=== PATIENT | female | born 1965 | race African-American/Black ===

== ENCOUNTER 2017-09-18 15:28 | Inpatient (IN) | payer BC ==
--- NOTE | 2017-09-18 16:07 | PN ---
S Progress Note Note: Psychiatric nurse practitioner note: Call received by nurse requesting patient's medication. Pt. admitted to rehab from [facility]. Chart reviewed. Seroquel 50mg qhs ordered.
[2017-09-18] MEDS ORDERED: P-EPHED 60MG/TRIPROLIDI 2.5MG TABLET PO PRN (19:26)
[2017-09-18] MEDS ORDERED: MAG HYDROX/AL HYDROX/SIMETH 30 ML UNIT-DOSE CUP PO PRN (19:26)
[2017-09-18] MEDS ORDERED: MAGNESIUM HYDROX 2400MG/30ML ORAL SUSPENSION 30 ML CUP PO PRN (19:26)
[2017-09-18] MEDS ORDERED: ACETAMINOPHEN 325 MG TABLET (FP) PO PRN (19:26)
[2017-09-18] MEDS ORDERED: MENTHOL/PHENOL 1 EACH UD MM PRN (19:26)
[2017-09-18] MEDS ORDERED: MAGNESIUM CITRATE 300 ML BOTTLE PO PRN (19:26)
[2017-09-18] MEDS ORDERED: IBUPROFEN 400 MG TABLET (FP) PO PRN (19:26)
[2017-09-18] MEDS ORDERED: guaiFENesin/D-METHORPHAN HB 10 ML UNIT-DOSE CUPS PO PRN (19:26)
--- NOTE | 2017-09-18 19:28 | HP ---
FAROOQ HERNANDEZ Rehab Assess/Revision - Admission History Admitted to Rehab from: [facility] [place] Date of Admission to Rehab: 09/18/17 - Vital signs Vital Signs: Vital Signs Period Temp Pulse Resp BP Sys/Stevens Pulse Ox Last 24 Hr 98.7 F 97 16 122/85 - Findings Detox History & Physical reviewed: Yes Concur with findings: Yes Inpatient Rehab Admission - Initial Determination Are CD services needed?: Yes Free of communicable disease: Yes Not in need of hospitalization: Yes - Rehab Admission Criteria Previous failed treatment: Yes Poor recovery environment: Yes Comorbidities: Yes Lacks judgement: Yes Patient is meeting Inpatient Rehab admission criteria:: Yes
--- NOTE | 2017-09-18 20:58 | PN ---
[facility] Progress Note Note: Psychiatric nurse practitioner front desk receptionist note: Call received by RN requesting patient's medication. Pt. requesting seroquel 100mg + Celexa 20mg. Pt reported taking seroquel 300mg when assessed by curriculum writer in detox. Pt. able to tolerate seroquel 50mg. Will increase seroquel to 100mg. Celexa to be on hold until patient speaks to unit psychiatrist tomorrow morning.
[2017-09-18] MEDS: THIAMINE HCL 100 MG TABLET (FP) PO SCH (21:34)
[2017-09-18] MEDS: LOPERAMIDE HCL 2 MG CAPSULE PO PRN (21:34)
[2017-09-18] MEDS: QUEtiapine FUMARATE 50 MG TABLET PO SCH (21:34)
[2017-09-18] MEDS ORDERED: QUEtiapine FUMARATE 50 MG TABLET PO SCH (22:00)
[2017-09-19] MEDS: NICOTINE 14 MG/24 HOURS TOPICAL PATCH TD SCH (10:11)
[2017-09-19] MEDS: PRENATAL VITAMINS W/ FOLIC ACID TABLET (FP) PO SCH (10:11)
[2017-09-19] MEDS: LOPERAMIDE HCL 2 MG CAPSULE PO PRN ×2 (10:12→18:15)
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
[2017-09-19] MEDS: GABAPENTIN 100 MG CAPSULE (FP) PO SCH ×2 (15:35→21:06)
[2017-09-19] MEDS: THIAMINE HCL 100 MG TABLET (FP) PO SCH (21:07)
[2017-09-19] MEDS: QUEtiapine FUMARATE 50 MG TABLET PO SCH (21:07)
[2017-09-20] MEDS: GABAPENTIN 100 MG CAPSULE (FP) PO SCH ×3 (06:45→21:20)
[2017-09-20] MEDS: PRENATAL VITAMINS W/ FOLIC ACID TABLET (FP) PO SCH (10:06)
[2017-09-20] MEDS: NICOTINE 14 MG/24 HOURS TOPICAL PATCH TD SCH (10:06)
[2017-09-20] MEDS ORDERED: DIPHENOXYLATE 2.5/ATROPINE.025 1 COMBO TABLET PO ONE (13:55)
--- NOTE | 2017-09-20 13:56 | PN ---
S Progress Note Note: Vital Signs Temperature 99.1 F 09/20/17 07:23 Pulse Rate 91 H 09/20/17 07:23 Respiratory Rate 18 09/20/17 07:23 Blood Pressure 106/79 09/20/17 07:23 O2 Sat by Pulse Oximetry (%) c/o of diarrhea unrelieved with immodium one time dose of lomitil PO fluids as tolerated continue to monitor
[2017-09-20] MEDS: THIAMINE HCL 100 MG TABLET (FP) PO SCH (21:19)
[2017-09-20] MEDS: QUEtiapine FUMARATE 50 MG TABLET PO SCH (21:20)
[2017-09-21] MEDS: GABAPENTIN 100 MG CAPSULE (FP) PO SCH ×3 (06:32→21:13)
[2017-09-21] MEDS: LOPERAMIDE HCL 2 MG CAPSULE PO PRN ×2 (06:33→13:54)
[2017-09-21] MEDS: NICOTINE 14 MG/24 HOURS TOPICAL PATCH TD SCH (10:28)
[2017-09-21] MEDS: PRENATAL VITAMINS W/ FOLIC ACID TABLET (FP) PO SCH (10:28)
[2017-09-21] MEDS ORDERED: COLLOIDAL OATMEAL 1 BAR EACH TP PRN (11:35)
[2017-09-21] MEDS: QUEtiapine FUMARATE 50 MG TABLET PO SCH (21:13)
[2017-09-21] MEDS: THIAMINE HCL 100 MG TABLET (FP) PO SCH (21:13)
[2017-09-21] MEDS: MINERAL OIL/PETROLAT/WATER TOPICAL CREAM 113 GM JAR TP SCH (21:13)
[2017-09-22] MEDS: GABAPENTIN 100 MG CAPSULE (FP) PO SCH ×3 (06:53→21:30)
[2017-09-22] MEDS: PRENATAL VITAMINS W/ FOLIC ACID TABLET (FP) PO SCH (10:33)
[2017-09-22] MEDS: NICOTINE 14 MG/24 HOURS TOPICAL PATCH TD SCH (10:33)
[2017-09-22] MEDS: MINERAL OIL/PETROLAT/WATER TOPICAL CREAM 113 GM JAR TP SCH ×2 (10:34→21:31)
[2017-09-22] MEDS: LOPERAMIDE HCL 2 MG CAPSULE PO PRN (13:50)
[2017-09-22] MEDS: THIAMINE HCL 100 MG TABLET (FP) PO SCH (21:30)
[2017-09-22] MEDS: QUEtiapine FUMARATE 50 MG TABLET PO SCH (21:30)
[2017-09-23] MEDS: GABAPENTIN 100 MG CAPSULE (FP) PO SCH ×3 (06:27→21:18)
[2017-09-23] MEDS ORDERED: PT OWN MED DRAWER 7, Y5N ONE ×2 (08:52→19:53)
[2017-09-23] MEDS: MINERAL OIL/PETROLAT/WATER TOPICAL CREAM 113 GM JAR TP SCH ×2 (10:12→21:53)
[2017-09-23] MEDS: NICOTINE 14 MG/24 HOURS TOPICAL PATCH TD SCH (10:12)
[2017-09-23] MEDS: PRENATAL VITAMINS W/ FOLIC ACID TABLET (FP) PO SCH (10:12)
[2017-09-23] MEDS: QUEtiapine FUMARATE 50 MG TABLET PO SCH (21:17)
[2017-09-23] MEDS: THIAMINE HCL 100 MG TABLET (FP) PO SCH (21:18)
[2017-09-24] MEDS: GABAPENTIN 100 MG CAPSULE (FP) PO SCH ×3 (06:47→21:49)
[2017-09-24] MEDS ORDERED: PT OWN MED DRAWER 7, Y5N ONE (09:57)
[2017-09-24] MEDS: NICOTINE 14 MG/24 HOURS TOPICAL PATCH TD SCH (10:31)
[2017-09-24] MEDS: PRENATAL VITAMINS W/ FOLIC ACID TABLET (FP) PO SCH (10:31)
[2017-09-24] MEDS: NICOTINE POLACRILEX 2 MG GUM BUC PRN (10:32)
[2017-09-24] MEDS: MINERAL OIL/PETROLAT/WATER TOPICAL CREAM 113 GM JAR TP SCH ×2 (10:52→22:30)
[2017-09-24] MEDS: QUEtiapine FUMARATE 50 MG TABLET PO SCH (21:49)
[2017-09-24] MEDS: THIAMINE HCL 100 MG TABLET (FP) PO SCH (21:49)
[2017-09-24] MEDS: MELATONIN 5 MG TABLETS PO PRN (21:51)
[2017-09-24] MEDS: hydrOXYzine PAMOATE 50 MG CAPSULE (FP) PO PRN (21:51)
[2017-09-25] MEDS: GABAPENTIN 100 MG CAPSULE (FP) PO SCH ×3 (06:32→21:16)
[2017-09-25] MEDS: PRENATAL VITAMINS W/ FOLIC ACID TABLET (FP) PO SCH (10:35)
[2017-09-25] MEDS: MINERAL OIL/PETROLAT/WATER TOPICAL CREAM 113 GM JAR TP SCH ×2 (10:35→21:19)
[2017-09-25] MEDS: NICOTINE 14 MG/24 HOURS TOPICAL PATCH TD SCH (10:35)
[2017-09-25] MEDS: NICOTINE POLACRILEX 2 MG GUM BUC PRN ×2 (10:36→19:24)
[2017-09-25] MEDS ORDERED: PT OWN MED DRAWER 7, Y5N ONE (13:56)
[2017-09-25] MEDS: THIAMINE HCL 100 MG TABLET (FP) PO SCH (21:16)
[2017-09-25] MEDS: QUEtiapine FUMARATE 50 MG TABLET PO SCH (21:16)
[2017-09-25] MEDS: MELATONIN 5 MG TABLETS PO PRN (21:17)
[2017-09-25] MEDS: hydrOXYzine PAMOATE 50 MG CAPSULE (FP) PO PRN (21:17)
[2017-09-26] MEDS: GABAPENTIN 100 MG CAPSULE (FP) PO SCH ×3 (06:52→21:05)
[2017-09-26] MEDS: PRENATAL VITAMINS W/ FOLIC ACID TABLET (FP) PO SCH (10:36)
[2017-09-26] MEDS: MINERAL OIL/PETROLAT/WATER TOPICAL CREAM 113 GM JAR TP SCH ×2 (10:36→21:05)
[2017-09-26] MEDS: NICOTINE 14 MG/24 HOURS TOPICAL PATCH TD SCH (10:36)
[2017-09-26] MEDS: NICOTINE POLACRILEX 2 MG GUM BUC PRN (10:38)
[2017-09-26] MEDS ORDERED: PT OWN MED DRAWER 7, Y5N ONE (10:57)
--- NOTE | 2017-09-26 11:52 | PN ---
S Progress Note Note: patient slipped on the hallway,no head injury,stated hit left elbow, no complaint at this time no obvious injury movement left elbow no limitation,no pain bp 124/78,p81,r18,t98.2 treatment initiate fall protocol2 fall precaution observation
[2017-09-26] MEDS: THIAMINE HCL 100 MG TABLET (FP) PO SCH (21:05)
[2017-09-26] MEDS: QUEtiapine FUMARATE 50 MG TABLET PO SCH (21:05)
[2017-09-27] MEDS: GABAPENTIN 100 MG CAPSULE (FP) PO SCH ×3 (06:14→21:48)
[2017-09-27] MEDS: NICOTINE 14 MG/24 HOURS TOPICAL PATCH TD SCH (10:36)
[2017-09-27] MEDS: PRENATAL VITAMINS W/ FOLIC ACID TABLET (FP) PO SCH (10:36)
[2017-09-27] MEDS: MINERAL OIL/PETROLAT/WATER TOPICAL CREAM 113 GM JAR TP SCH ×2 (10:37→21:50)
[2017-09-27] MEDS ORDERED: PT OWN MED DRAWER 7, Y5N ONE (10:58)
[2017-09-27] MEDS: THIAMINE HCL 100 MG TABLET (FP) PO SCH (21:48)
[2017-09-27] MEDS: QUEtiapine FUMARATE 50 MG TABLET PO SCH (21:48)
[2017-09-28] MEDS: GABAPENTIN 100 MG CAPSULE (FP) PO SCH ×3 (06:22→21:10)
[2017-09-28] MEDS: MINERAL OIL/PETROLAT/WATER TOPICAL CREAM 113 GM JAR TP SCH ×2 (10:00→21:11)
[2017-09-28] MEDS: PRENATAL VITAMINS W/ FOLIC ACID TABLET (FP) PO SCH (10:00)
[2017-09-28] MEDS: NICOTINE 14 MG/24 HOURS TOPICAL PATCH TD SCH (10:00)
[2017-09-28] MEDS: THIAMINE HCL 100 MG TABLET (FP) PO SCH (21:10)
[2017-09-28] MEDS: QUEtiapine FUMARATE 50 MG TABLET PO SCH (21:10)
[2017-09-29] MEDS: GABAPENTIN 100 MG CAPSULE (FP) PO SCH ×3 (06:40→21:12)
[2017-09-29] MEDS ORDERED: PT OWN MED DRAWER 7, Y5N ONE (08:32)
[2017-09-29] MEDS: MINERAL OIL/PETROLAT/WATER TOPICAL CREAM 113 GM JAR TP SCH ×2 (09:54→21:12)
[2017-09-29] MEDS: NICOTINE 14 MG/24 HOURS TOPICAL PATCH TD SCH (09:54)
[2017-09-29] MEDS: PRENATAL VITAMINS W/ FOLIC ACID TABLET (FP) PO SCH (09:54)
[2017-09-29] MEDS: MELATONIN 5 MG TABLETS PO PRN (21:11)
[2017-09-29] MEDS: QUEtiapine FUMARATE 50 MG TABLET PO SCH (21:11)
[2017-09-29] MEDS: hydrOXYzine PAMOATE 50 MG CAPSULE (FP) PO PRN (21:11)
[2017-09-29] MEDS: THIAMINE HCL 100 MG TABLET (FP) PO SCH (21:12)
[2017-09-30] MEDS: GABAPENTIN 100 MG CAPSULE (FP) PO SCH ×3 (06:35→21:19)
[2017-09-30] MEDS ORDERED: PT OWN MED DRAWER 7, Y5N ONE (08:18)
[2017-09-30] MEDS: PRENATAL VITAMINS W/ FOLIC ACID TABLET (FP) PO SCH (10:02)
[2017-09-30] MEDS: NICOTINE POLACRILEX 2 MG GUM BUC PRN (10:03)
[2017-09-30] MEDS: NICOTINE 14 MG/24 HOURS TOPICAL PATCH TD SCH (10:03)
[2017-09-30] MEDS: MINERAL OIL/PETROLAT/WATER TOPICAL CREAM 113 GM JAR TP SCH ×2 (10:03→21:20)
[2017-09-30] MEDS: MELATONIN 5 MG TABLETS PO PRN (21:19)
[2017-09-30] MEDS: THIAMINE HCL 100 MG TABLET (FP) PO SCH (21:19)
[2017-09-30] MEDS: QUEtiapine FUMARATE 50 MG TABLET PO SCH (21:19)
[2017-09-30] MEDS: hydrOXYzine PAMOATE 50 MG CAPSULE (FP) PO PRN (21:19)
[2017-10-01] MEDS: GABAPENTIN 100 MG CAPSULE (FP) PO SCH ×3 (06:31→21:21)
[2017-10-01] MEDS: MINERAL OIL/PETROLAT/WATER TOPICAL CREAM 113 GM JAR TP SCH ×2 (09:58→21:22)
[2017-10-01] MEDS: NICOTINE 14 MG/24 HOURS TOPICAL PATCH TD SCH (09:58)
[2017-10-01] MEDS: PRENATAL VITAMINS W/ FOLIC ACID TABLET (FP) PO SCH (09:58)
[2017-10-01] MEDS: NICOTINE POLACRILEX 2 MG GUM BUC PRN (11:08)
[2017-10-01] MEDS: QUEtiapine FUMARATE 50 MG TABLET PO SCH (21:21)
[2017-10-01] MEDS: THIAMINE HCL 100 MG TABLET (FP) PO SCH (21:21)
[2017-10-02] MEDS: GABAPENTIN 100 MG CAPSULE (FP) PO SCH (06:16)
[2017-10-02 06:52] VITALS: BP 116/73; PULSE 68; TEMP 98.1
[2017-10-02] MEDS: PRENATAL VITAMINS W/ FOLIC ACID TABLET (FP) PO SCH (09:10)
--- NOTE | 2017-10-02 09:11 | PN ---
[facility] Progress Note Note: patient completed this program today.she has met her treatment goals and will continue to addres her issues on outpatient basis.Patient is stable for discharge today.
[2017-10-02] MEDS ORDERED: PT OWN MED DRAWER 7, Y5N ONE (09:12)
[2017-10-02] MEDS: MINERAL OIL/PETROLAT/WATER TOPICAL CREAM 113 GM JAR TP SCH (09:12)
[2017-10-02] MEDS: NICOTINE 14 MG/24 HOURS TOPICAL PATCH TD SCH (09:12)
== END 2017-10-02 09:44 | disposition home or self-care (01) | DRG 772 ==
LOC: YASAS 15:28 → Y3E 15:29
PROVIDERS: ADMIT Psychiatry & Neurology Psychiatry; ATTEND Psychiatry & Neurology Psychiatry
PROC: HZ42ZZZ Group Counseling for Substance Abuse Treatment, Cognitive-Behavioral (ICD-10-PCS; principal; 2017-09-18)
DX: F10.20 Alcohol dependence, uncomplicated (principal); F14.20 Cocaine dependence, uncomplicated; F17.210 Nicotine dependence, cigarettes, uncomplicated; F43.10 Post-traumatic stress disorder, unspecified; F19.282 Other psychoactive substance dependence with psychoactive substance-induced sleep disorder; R19.7 Diarrhea, unspecified; H54.40 Blindness, one eye, unspecified eye; W01.0XXA Fall on same level from slipping, tripping and stumbling without subsequent striking against object, initial encounter; Y93.01 Activity, walking, marching and hiking; Y92.232 Corridor of hospital as the place of occurrence of the external cause